=== PATIENT | female | born 1995 | race Caucasian/White ===

== ENCOUNTER 2019-10-09 19:15 | Emergency (ER) | payer OTHER ==
[2019-10-09] MEDS ORDERED: IBUPROFEN 200 MG TAB PO ONE (19:48)
[2019-10-09] MEDS ORDERED: ACETAMINOPHEN-CAFF-BUTALBITAL 1 EA TAB PO ONE (19:48)
[2019-10-09 20:30] VITALS: O2SAT 99
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
[2019-10-09 21:13] VITALS: BP 126/79; TEMP 98.3
== END 2019-10-09 21:13 | disposition home or self-care (01) ==
LOC: ER 19:15
DX: R07.89 Other chest pain (principal); V40.5XXA Car driver injured in collision with pedestrian or animal in traffic accident, initial encounter; Y92.410 Unspecified street and highway as the place of occurrence of the external cause

== ENCOUNTER → 2020-01-30 | Outpatient (CLI) | payer BC | DX: M25.552 Pain in left hip (principal); M25.862 Other specified joint disorders, left knee ==

== ENCOUNTER → 2020-05-19 | Outpatient (CLI) | payer BC | LOC: GMA MATASK 17:33 | PROVIDERS: ATTEND Family Medicine | DX: Z32.00 Encounter for pregnancy test, result unknown (principal) ==